=== PATIENT | female | born 1970 | race Hispanic/Latino ===

== ENCOUNTER 2017-08-06 10:52 | Emergency (ER) | payer OTHER ==
[~2017-08-06] VITALS: Ht 152.4 cm; Wt 87.4 kg
[~2017-08-06 10:52] MED LIST: CYCLOBENZAPRINE10 MG PO; FLEXERIL10 MG PO; LIDODERM 5% P1 PATCH TD; NAPROSYN500 MG PO; NOHOMEMEDS; PREDNISONE10 MG PO; ROBAXIN500 MG PO; TYLENOL REGULA325 MG PO; ULTRAM50 MG PO; ZANTAC150 MG PO
[2017-08-06 13:42] LABS: APPEARANCE CLEAR ((CLEAR)); BILIRUBIN NEGATIVE; BLOOD NEGATIVE; COLOR YELLOW ((YELLOW)); GLUCOSE (STRIP) NEGATIVE; KETONES NEGATIVE; LEUKOCYTES NEGATIVE; NITRITE NEGATIVE; PROTEIN (STRIP) NEGATIVE; SPECIFIC GRAVITY 1.024 (1.000-1.030); UROBILINOGEN 0.2 MG/DL (0.2-1.0)
[2017-08-06] MEDS ORDERED: FLONASE16 G1 BOTH NARES (13:45)
[2017-08-06] MEDS ORDERED: AUGMENTIN875 MG PO (13:45)
[2017-08-06 14:12] VITALS: BP 120/91
== END 2017-08-06 14:13 | disposition home or self-care (01) ==
LOC: EME 10:52
PROVIDERS: Nurse Practitioner Family
DX: J32.9 Chronic sinusitis, unspecified (principal); G89.29 Other chronic pain; M54.5 Low back pain
CPT/HCPCS: 81003; 81025; 99281; 99283